=== PATIENT | female | born 1990 | race Caucasian/White ===

== ENCOUNTER 2021-01-23 13:58 | Observation (INO) | payer MEDICAID ==
[~2021-01-23] VITALS: Ht 175.3 cm; Wt 98.4 kg
[2021-01-23] MEDS ORDERED: PREN-96 PO (15:42)
[2021-01-23 16:42] LABS: Urine WBC None Seen /hpf (0 - 5)
[2021-01-23 16:45] LABS: Basophils # (auto) 0 10 ^3/uL (0-0.2); Basophils % (auto) 0.4 % (0.0-2.0); Eosinophils # (auto) 0.1 10 ^3/uL (0-0.8); Eosinophils % (auto) 0.5 % (0.0-7.0); Hematocrit 34.2 % (36.0-46.0); Hemoglobin 11.7 g/dL (12.2-16.2); Lymphocytes # (auto) 2.2 10 ^3/uL (0.4-5.4); Lymphocytes % (auto) 19.9 % (10.0-50.0); Mean Corpuscular Hemoglobin 30.1 pg (28.0-32.0); Mean Corpuscular Hgb Conc. 34.2 g/dL (32.0-36.0); Monocytes # (auto) 0.7 10 ^3/uL (0-1.3); Monocytes % (auto) 6.7 % (0.0-12.0); Neutrophils % (auto) 72.5 % (37.0-80.0); Nucleated Red Blood Cells % 0.1 %; Platelet Count (auto) 205 10^3/uL (140-450); Red Blood Cells 3.89 10^6/uL (4.0-5.20); Red Cell Distribution Width 13.6 % (11.8-14.3); White Blood Cell 11.1 10^3/uL (4.4-10.8)
[2021-01-23 16:51] LABS: Urine Bacteria NONE SEEN /hpf (None Seen); Urine Blood Negative /uL (Negative); Urine Specific Gravity 1.007 (1.001-1.035)
[2021-01-23 17:02] LABS: Albumin 2.7 g/dL (3.4-5.0); Calcium 8.6 mg/dL (8.5-10.1); INR 0.88 (0.9-1.15); Partial Thromboplastin Time 24.3 sec (23.0-31.2)
[2021-01-23 17:04] LABS: Protein, Urine 5.9 mg/dL (0.0-11.9)
[2021-01-23 17:06] LABS: BUN/Creatinine Ratio 15.2; Bilirubin, Total 0.1 mg/dL (0.2-1.0); Total Protein 6.8 g/dL (6.4-8.2)
[2021-01-23] MEDS ORDERED: LABETALOL HCL 200 MG TAB PO ONE (17:45)
[2021-01-24] MEDS ORDERED: LABE100T4 PO ×2 (14:12)
== END 2021-01-23 20:03 | disposition home or self-care (01) ==
LOC: LDRP 13:58
PROVIDERS: ADMIT Obstetrics & Gynecology; ATTEND Obstetrics & Gynecology
DX: O36.5930 Maternal care for other known or suspected poor fetal growth, third trimester, not applicable or unspecified (principal); O62.9 Abnormality of forces of labor, unspecified; Z3A.35 35 weeks gestation of pregnancy
CPT/HCPCS: 36415; 59025; 76818; 80053; 81001; 81002; 82570; 84156; 84550; 85025; 85610; 85730; 94760; G0378

== ENCOUNTER 2021-01-24 13:05 | Observation (INO) | payer MEDICAID ==
[~2021-01-24 13:05] MED LIST: PREN-96 PO
[2021-01-24] MEDS ORDERED: LABE100T4 PO ×2 (14:12)
== END 2021-01-24 14:26 | disposition home or self-care (01) ==
LOC: LDRP 13:05
PROVIDERS: ADMIT Specialist; ATTEND Specialist
DX: O36.5930 Maternal care for other known or suspected poor fetal growth, third trimester, not applicable or unspecified (principal); O13.3 Gestational [pregnancy-induced] hypertension without significant proteinuria, third trimester; O62.9 Abnormality of forces of labor, unspecified; Z3A.36 36 weeks gestation of pregnancy
CPT/HCPCS: 59025; 81002; 94760; G0378

== ENCOUNTER 2021-01-27 10:33 | Observation (INO) | payer MEDICAID ==
[~2021-01-27] VITALS: Ht 175.3 cm; Wt 99.8 kg
[~2021-01-27 10:33] MED LIST changes: +LABE100T4 PO
[2021-01-27 11:57] LABS: Protein, Urine 13.6 mg/dL (0.0-11.9)
[2021-01-27 12:10] LABS: Protein, Urine 6.1 mg/dL (0.0-11.9)
[2021-01-27 12:14] LABS: 24 Hr. Total Protein, Urine 315.9 mg/24 Hr (<149.1)
[2021-01-27] MEDS ORDERED: BETAMETHASONE ACET (30mg/5ml) 5ml Vial 6mg/ml IM ONE (12:15)
[2021-01-27 12:19] LABS: Creatinine Clearance, Urine 92.62 mL/min (75-115)
[2021-01-27 12:26] LABS: Basophils # (auto) 0 10 ^3/uL (0-0.2); Basophils % (auto) 0.4 % (0.0-2.0); Eosinophils # (auto) 0.1 10 ^3/uL (0-0.8); Eosinophils % (auto) 0.5 % (0.0-7.0); Hematocrit 38.6 % (36.0-46.0); Hemoglobin 12.9 g/dL (12.2-16.2); Lymphocytes # (auto) 2.1 10 ^3/uL (0.4-5.4); Lymphocytes % (auto) 18.5 % (10.0-50.0); Mean Corpuscular Hemoglobin 29.9 pg (28.0-32.0); Mean Corpuscular Hgb Conc. 33.6 g/dL (32.0-36.0); Mean Corpuscular Volume 89.1 fL (80.0-100.0); Monocytes # (auto) 0.7 10 ^3/uL (0-1.3); Monocytes % (auto) 6.1 % (0.0-12.0); Neutrophils # (auto) 8.6 10 ^3/uL (1.6-8.6); Neutrophils % (auto) 74.5 % (37.0-80.0); Nucleated Red Blood Cells % 0.1 %; Red Blood Cells 4.33 10^6/uL (4.0-5.20); Red Cell Distribution Width 13.7 % (11.8-14.3); White Blood Cell 11.5 10^3/uL (4.4-10.8)
[2021-01-27] MEDS ORDERED: LACTATED RINGER'S 1,000 ML IV ONE (12:30)
[2021-01-27 12:42] LABS: INR 0.91 (0.9-1.15); Partial Thromboplastin Time 25.5 sec (23.0-31.2)
[2021-01-27] MEDS: TERBUTALINE SULFATE 1 MG/ML 1ML VIAL SC SCH ×2 (12:49→13:20)
[2021-01-27 13:04] LABS: Urine Bacteria FEW /hpf (None Seen); Urine Blood Negative /uL (Negative); Urine Specific Gravity 1.014 (1.001-1.035); Urine WBC 2 /hpf (0 - 5)
[2021-01-27 13:34] LABS: Albumin 2.6 g/dL (3.4-5.0); Calcium 8.5 mg/dL (8.5-10.1); Potassium 4.5 mmol/L (3.5-5.1)
[2021-01-27 13:37] LABS: BUN/Creatinine Ratio 16.4; Bilirubin, Total 0.2 mg/dL (0.2-1.0); Total Protein 6.9 g/dL (6.4-8.2)
== END 2021-01-27 14:40 | disposition home or self-care (01) ==
LOC: LDRP 10:33
PROVIDERS: ADMIT Specialist; ATTEND Specialist
DX: O36.5930 Maternal care for other known or suspected poor fetal growth, third trimester, not applicable or unspecified (principal); O13.3 Gestational [pregnancy-induced] hypertension without significant proteinuria, third trimester; Z79.899 Other long term (current) drug therapy; Z3A.36 36 weeks gestation of pregnancy
CPT/HCPCS: 36415; 59025; 76818; 80053; 81001; 81002; 82565; 82570; 82575; 84156; 84550; 85025; 85610; 85730; 94760; 96360; 96361; 96372; G0378; J0702; J3105

== ENCOUNTER 2021-01-28 13:05 | Inpatient (IN) | payer MEDICAID ==
[~2021-01-28] VITALS: Ht 170.2 cm; Wt 88.5 kg
[2021-01-28] MEDS ORDERED: BETAMETHASONE ACET (6MG/ML) 5ML VIAL IM ONE (13:30)
[2021-01-28] MEDS ORDERED: WITCH HAZEL-GLYCERIN PAD TOP PRN (15:45)
[2021-01-28] MEDS ORDERED: DERMOPLAST 60ML BOTTLE TOP PRN (15:45)
[2021-01-28] MEDS ORDERED: PROMETHAZINE HCL 25 MG/ML 1ML IV PRN (15:45)
[2021-01-28] MEDS ORDERED: PHISODERM TOP SOLN 240ML BTL TOP PRN (15:45)
[2021-01-28] MEDS ORDERED: LACTATED RINGER'S 1,000 ML IV SCH (15:45)
[2021-01-28] MEDS ORDERED: BUTORPHANOL TARTRATE 2 MG/1 ML VIAL IV PRN ×2 (15:45)
[2021-01-28 17:00] LABS: Basophils # (auto) 0 10 ^3/uL (0-0.2); Basophils % (auto) 0.1 % (0.0-2.0); Eosinophils # (auto) 0 10 ^3/uL (0-0.8); Hematocrit 35.3 % (36.0-46.0); Hemoglobin 12.1 g/dL (12.2-16.2); Lymphocytes # (auto) 1.2 10 ^3/uL (0.4-5.4); Mean Corpuscular Hgb Conc. 34.2 g/dL (32.0-36.0); Mean Corpuscular Volume 87.8 fL (80.0-100.0); Monocytes # (auto) 0.5 10 ^3/uL (0-1.3); Monocytes % (auto) 3.1 % (0.0-12.0); Neutrophils # (auto) 14.8 10 ^3/uL (1.6-8.6); Neutrophils % (auto) 89.8 % (37.0-80.0); Platelet Count (auto) 242 10^3/uL (140-450); Red Blood Cells 4.02 10^6/uL (4.0-5.20); Red Cell Distribution Width 13.8 % (11.8-14.3); White Blood Cell 16.4 10^3/uL (4.4-10.8)
[2021-01-28 17:10] LABS: Albumin 2.9 g/dL (3.4-5.0); Calcium 9.3 mg/dL (8.5-10.1); Potassium 3.9 mmol/L (3.5-5.1)
[2021-01-28 17:12] LABS: BUN/Creatinine Ratio 17.6
[2021-01-28 17:14] LABS: Bilirubin, Total 0.2 mg/dL (0.2-1.0); Total Protein 7.4 g/dL (6.4-8.2)
[2021-01-28 17:29] LABS: INR 0.89 (0.9-1.15); Partial Thromboplastin Time 23.4 sec (23.0-31.2)
[2021-01-28] MEDS: LABETALOL HCL 200 MG TAB PO SCH (18:42)
[2021-01-28] MEDS ORDERED: ceFAZolin 1GM/50ML 50 ML IV ONE (18:45)
[2021-01-28 19:05] LABS: Urine Bacteria FEW /hpf (None Seen); Urine Blood TRACE /uL (Negative); Urine Specific Gravity 1.007 (1.001-1.035); Urine WBC 6 /hpf (0 - 5)
[2021-01-28 19:17] LABS: Amphetamine Screen, Urine NEGATIVE (NEGATIVE); Barbiturate Scree,Urine NEGATIVE (NEGATIVE); Benzodiazephine Screen, Urine NEGATIVE (NEGATIVE); Cannabinoid Screen, Urine NEGATIVE (NEGATIVE); Cocaine Screen, Urine NEGATIVE (NEGATIVE); Opiate Scree,Urine NEGATIVE (NEGATIVE); Phencyclidine Screen, Urine NEGATIVE (NEGATIVE)
[2021-01-28] MEDS: CALCIUM CARB 500 MG CHEW TAB PO SCH (20:15)
[2021-01-29] VITALS (18 sets, daily range): BP systolic 114–133; BP diastolic 56–77
[2021-01-29] MEDS ORDERED: TETRACAINE 1% INJ 2 ML VIAL IJ ONE (00:58)
[2021-01-29] MEDS ORDERED: ePHEDrine SULFATE 50 MG/ML AMP ONE (01:03)
[2021-01-29] MEDS ORDERED: ONDANSETRON HCL 4 MG/2 ML VIAL ONE (01:03)
[2021-01-29] MEDS ORDERED: fentaNYL CITRATE 100 MCG/2 ML VL ONE (01:04)
[2021-01-29] MEDS ORDERED: MORPHINE SULF(PF) 0.5MG/ML 10ML VIAL ONE (01:04)
[2021-01-29] MEDS ORDERED: oxyTOCIN 10 UNIT/ML 10ML VIAL ONE (01:04)
[2021-01-29] MEDS: SODIUM CITR/CITRIC ACID ORAL SOLN 30 ML PO SCH ×4 (01:09→18:00)
[2021-01-29] MEDS ORDERED: HYDROmorphone HCL 2 MG/ML VL IV PRN ×2 (02:30)
[2021-01-29] MEDS ORDERED: KETOROLAC TROMETH 30 MG/ML 1ML VIAL IV PRN (02:30)
[2021-01-29] MEDS ORDERED: ONDANSETRON HCL 4 MG/2 ML VIAL IV PRN ×2 (02:30)
[2021-01-29] MEDS ORDERED: GUM (CHEWING) 1 GUM CHEW CHEW ONE (02:30)
[2021-01-29] MEDS ORDERED: DexAMETHasone SOD PHOS 10MG/1ML VIAL INJ IV PRN (02:30)
[2021-01-29] MEDS ORDERED: NALOXONE HCL 0.4 MG/ML VIAL IV PRN (02:30)
[2021-01-29] MEDS ORDERED: NALBUPHINE HCL 10 MG/1ml INJECTION SUBCUT ONE (02:30)
[2021-01-29] MEDS: LACTATED RINGER'S 1,000 ML IV SCH ×3 (03:25→18:30)
[2021-01-29] MEDS: KETOROLAC TROMETH 30 MG/ML 1ML VIAL IV PRN ×3 (03:37→22:56)
[2021-01-29 06:06] LABS: RPR Non Reactive (Non Reactive)
[2021-01-29] MEDS: diphenhdrAMINE HCL 50 MG/1 ML VL IV PRN ×2 (07:37→16:07)
[2021-01-29] MEDS: CALCIUM CARB 500 MG CHEW TAB PO SCH ×3 (08:00→18:00)
[2021-01-29] MEDS: ceFAZolin 1GM/50ML 50 ML IV SCH ×2 (08:33→16:58)
[2021-01-29] MEDS ORDERED: SODIUM CITR/CITRIC ACID ORAL SOLN 30 ML PO SCH (09:00)
[2021-01-29] MEDS: LABETALOL HCL 200 MG TAB PO SCH ×2 (10:00→22:00)
[2021-01-30] VITALS (8 sets, daily range): BP systolic 120–146; BP diastolic 65–88
[2021-01-30] MEDS: ceFAZolin 1GM/50ML 50 ML IV SCH (00:51)
[2021-01-30 07:00] LABS: Basophils # (auto) 0 10 ^3/uL (0-0.2); Basophils % (auto) 0.2 % (0.0-2.0); Eosinophils # (auto) 0 10 ^3/uL (0-0.8); Hematocrit 31.4 % (36.0-46.0); Hemoglobin 10.8 g/dL (12.2-16.2); Lymphocytes # (auto) 2.3 10 ^3/uL (0.4-5.4); Mean Corpuscular Hemoglobin 30.4 pg (28.0-32.0); Mean Corpuscular Hgb Conc. 34.4 g/dL (32.0-36.0); Mean Corpuscular Volume 88.3 fL (80.0-100.0); Monocytes % (auto) 7.9 % (0.0-12.0); Neutrophils # (auto) 9.4 10 ^3/uL (1.6-8.6); Neutrophils % (auto) 73.9 % (37.0-80.0); Platelet Count (auto) 210 10^3/uL (140-450); Red Blood Cells 3.56 10^6/uL (4.0-5.20); Red Cell Distribution Width 13.9 % (11.8-14.3); White Blood Cell 12.7 10^3/uL (4.4-10.8)
[2021-01-30] MEDS: IBUPROFEN 800 MG TAB PO PRN ×2 (07:34→15:23)
[2021-01-30] MEDS: LABETALOL HCL 200 MG TAB PO SCH ×2 (09:49→22:29)
[2021-01-30] MEDS: DOCUSATE SOD 100 MG CAP PO SCH ×2 (09:49→22:28)
[2021-01-30] MEDS: HYDROcodone-ACET 5/325MG TAB PO PRN ×2 (11:13→22:28)
[2021-01-30] MEDS ORDERED: HYDR-4902 PO (12:24)
[2021-01-31] VITALS (8 sets, daily range): BP systolic 112–144; BP diastolic 55–77
[2021-01-31] MEDS: DOCUSATE SOD 100 MG CAP PO SCH ×2 (10:00→22:09)
[2021-01-31] MEDS: LABETALOL HCL 200 MG TAB PO SCH ×2 (10:00→11:36)
[2021-01-31] MEDS: HYDROcodone-ACET 5/325MG TAB PO PRN ×3 (10:31→18:00)
[2021-02-01] MEDS ORDERED: BISACODYL 10 MG RECT SUPP PR ONE (00:30)
[2021-02-01] MEDS: LABETALOL HCL 200 MG TAB PO SCH (01:39)
[2021-02-01] MEDS: IBUPROFEN 800 MG TAB PO PRN (01:48)
[2021-02-01 02:59] VITALS: BP 133/76
[2021-02-01] MEDS: HYDROcodone-ACET 5/325MG TAB PO PRN (03:38)
[2021-02-01 07:00] VITALS: BP 135/81
[2021-02-01 11:00] VITALS: BP 139/79
== END 2021-02-01 11:54 | disposition home or self-care (01) | DRG 540 ==
LOC: LDRP 13:05 → OBSVTOIN 15:18 → LDRP 15:29
PROVIDERS: ADMIT Specialist; ATTEND Specialist
PROC: 10D00Z1 Extraction of Products of Conception, Low, Open Approach (ICD-10-PCS; principal; 2021-01-29 01:15)
DX: O76 Abnormality in fetal heart rate and rhythm complicating labor and delivery (principal); R71.0 Precipitous drop in hematocrit; O69.81X0 Labor and delivery complicated by cord around neck, without compression, not applicable or unspecified; O36.5930 Maternal care for other known or suspected poor fetal growth, third trimester, not applicable or unspecified; K21.9 Gastro-esophageal reflux disease without esophagitis; O13.4 Gestational [pregnancy-induced] hypertension without significant proteinuria, complicating childbirth; O99.62 Diseases of the digestive system complicating childbirth; Z20.822 Contact with and (suspected) exposure to COVID-19; Z37.0 Single live birth; Z3A.36 36 weeks gestation of pregnancy
CPT/HCPCS: 36415; 59025; 76805; 76818; 80053; 80307; 81001; 81002; 85025; 85610; 85730; 86592; 86850; 86900; 86901; 87426; 94762; 96360; 96361; 96365; 96372; 96374; 96375; G0378; J0690; J1885; J2405; J2590